=== PATIENT | female | born 1995 | race Caucasian/White ===

== ENCOUNTER 2017-05-19 07:54 | Emergency (ER) | payer OTHER ==
[~2017-05-19] VITALS: Ht 167.6 cm; Wt 74.8 kg
[2017-05-19] MEDS ORDERED: IBUP800T37 PO (07:59)
[2017-05-19] MEDS ORDERED: HYDR-4309 PO (07:59)
--- NOTE | 2017-05-19 08:11 | ER Report ---
History and Physical Time Seen By MD: 08:04 Hx. of Stated Complaint: PT REPORTS R CALF PAIN THAT STARTED SATURDAY HPI/ROS CC: Painful right calf HPI: 22-year-old female 2 para 210 days post vaginal delivery presents to the emergency department with a five-day history of right calf pain that has progressively gotten worse over the last 5 days. Sharp stabbing with standing or flexion of the right ankle. Tender to touch. Calf is warm. Patient denies any shortness of breath, nausea vomiting, chest pain or chest pressure, diaphoresis or palpitations. Patient was in the emergency room on 01/23/2017 for the same complaint. She was 22 weeks at that time. She received a CTA during that visit which was negative. X-ray makes the pain worse. Rest makes it better. She also complains of a right foot being numb. ROS: 12 point review of systems essentially negative other than what's mentioned in history of present illness. NURSES AND OLD MEDICAL RECORDS: Reviewed PMH: Reviewed SURGICAL HX: Reviewed FAMILY HX: Noncontributory SOCIAL HX: She denies smoking alcohol or illicit drugs. She is not sexually active since her delivery. VITAL SIGNS: Reviewed CONSTITUTIONAL: Female in minimal to moderate distress. PHYSICAL EXAM: HEENT: Pupils equal round reactive to light and accommodate, EOMI, tympanic membranes pearly white umbo present with good light reflex. Lips dry mucous membranes moist gums nonbleeding uvula midline and rises equally with phonation, oropharynx noninjected, teeth intact. NECK: Neck supple, thyroid not appreciated, anterior and posterior cervical lymphadenopathy not appreciated. Trachea midline and rises equally with phonation. CARDIAC: S1-S2 regular rate rhythm no murmurs rubs or gallops. LUNGS: Lungs clear bilaterally posteriorly in all park. Good air movement. ABDOMEN: Abdomen soft, nondistended, bowel sounds active in all 4 quadrants, no bruits noted, no CVA tenderness. Right calf is slightly red and warm to touch, tender to touch. Bilateral patellar DTRs are 2+ bilateral Achilles DTRs are 2+. MUSCULOSKELETAL: Strength 5 out of 5 x 4 extremities, no deformities noted. NEUROLOGIC: Patient alert and oriented by 3 Allergies: Coded Allergies: No Known Drug Allergies (Unverified , 05/19/17) Home Meds Reported Medications Ibuprofen (IBUPROFEN) 800 Mg Tablet, 1 TAB PO PRN, TAB 05/19/17 Hydrocodone Bit/Acetaminophen (NORCO 5-325 TABLET) 1 Each Tablet, 1 EACH PO PRN , TAB 05/19/17 Hx Smoking: No Exposure to Second Hand Smoke?: No Hx Substance Use Disorder: No Hx Alcohol Use: No Constitutional Vital Sign - Last 24 Hours 05/19/17 05/19/17 05/19/17 05/19/17 07:55 07:57 07:59 08:00 Temp 97.4 Pulse 94 107 Resp 16 B/P (MAP) 110/75 110/75 (87) 119/76 (90) Pulse Ox 93 92 O2 Delivery Room Air 05/19/17 05/19/17 05/19/17 05/19/17 08:04 08:09 08:19 08:24 Pulse 94 95 94 Resp 26 24 Pulse Ox 93 92 89 92 05/19/17 05/19/17 05/19/17 05/19/17 08:29 08:30 08:34 08:39 Pulse 92 96 Resp 21 15 12 B/P (MAP) 96/66 (76) Pulse Ox 93 93 92 Medical Decision Making Data Points Result Diagram: 05/19/17 0823 05/19/17 0823 Laboratory Hematology Test 05/19/17 08:23 Red Blood Count 5.54 M/uL (4.17-5.56) Mean Corpuscular Volume 81.8 fL (80.0-96.0) Mean Corpuscular Hemoglobin 27.1 pg (26.0-33.0) Mean Corpuscular Hemoglobin Concent 33.1 g/dL (32.0-36.0) Red Cell Distribution Width 14.1 % (11.5-14.5) Mean Platelet Volume 6.6 fL (7.2-11.1) Neutrophils (%) (Auto) 62.4 % (39.4-72.5) Lymphocytes (%) (Auto) 29.7 % (17.6-49.6) Monocytes (%) (Auto) 5.3 % (4.1-12.4) Eosinophils (%) (Auto) 1.1 % (0.4-6.7) Basophils (%) (Auto) 1.5 % (0.3-1.4) Nucleated RBC Relative Count (auto) 0.1 /100WBC Neutrophils # (Auto) 5.8 K/uL (2.0-7.4) Lymphocytes # (Auto) 2.8 K/uL (1.3-3.6) Monocytes # (Auto) 0.5 K/uL (0.3-1.0) Eosinophils # (Auto) 0.1 K/uL (0.0-0.5) Basophils # (Auto) 0.1 K/uL (0.0-0.1) Nucleated RBC Absolute Count (auto) 0.01 K/uL Prothrombin Time 13.1 seconds (12.0-14.4) Prothromb Time International Ratio 0.99 Activated Partial Thromboplast Time 30 seconds (23-35) D-Dimer Quantitative (PE/DVT) 2.13 ug/ml (0-0.50) Sodium Level 140 mmol/L (137-145) Potassium Level 3.9 mmol/L (3.5-5.0) Chloride Level 107 mmol/L (98-107) Carbon Dioxide Level 23 mmol/L (22-31) Blood Urea Nitrogen 14 mg/dl (7-18) Creatinine 0.80 mg/dl (0.52-1.04) Glomerular Filtration Rate Calc > 60.0 Random Glucose 83 mg/dl (75-110) Calcium Level 9.4 mg/dl (8.4-10.2) Total Bilirubin 0.6 mg/dl (0.2-1.3) Aspartate Amino Transf (AST/SGOT) 23 U/L (0-35) Alanine Aminotransferase (ALT/SGPT) 24 U/L (0-56) Alkaline Phosphatase 59 U/L (0-126) Troponin I < 0.012 ng/ml Total Protein 7.8 gm/dl (6.3-8.2) Albumin 3.8 g/dl (3.5-5.0) Chemistry Test 05/19/17 08:23 White Blood Count 9.3 k/uL (4.5-11.0) Red Blood Count 5.54 M/uL (4.17-5.56) Hemoglobin 15.0 g/dL (12.0-16.0) Hematocrit 45.3 % (34.0-47.0) Mean Corpuscular Volume 81.8 fL (80.0-96.0) Mean Corpuscular Hemoglobin 27.1 pg (26.0-33.0) Mean Corpuscular Hemoglobin Concent 33.1 g/dL (32.0-36.0) Red Cell Distribution Width 14.1 % (11.5-14.5) Platelet Count 282 K/uL (150-450) Mean Platelet Volume 6.6 fL (7.2-11.1) Neutrophils (%) (Auto) 62.4 % (39.4-72.5) Lymphocytes (%) (Auto) 29.7 % (17.6-49.6) Monocytes (%) (Auto) 5.3 % (4.1-12.4) Eosinophils (%) (Auto) 1.1 % (0.4-6.7) Basophils (%) (Auto) 1.5 % (0.3-1.4) Nucleated RBC Relative Count (auto) 0.1 /100WBC Neutrophils # (Auto) 5.8 K/uL (2.0-7.4) Lymphocytes # (Auto) 2.8 K/uL (1.3-3.6) Monocytes # (Auto) 0.5 K/uL (0.3-1.0) Eosinophils # (Auto) 0.1 K/uL (0.0-0.5) Basophils # (Auto) 0.1 K/uL (0.0-0.1) Nucleated RBC Absolute Count (auto) 0.01 K/uL Prothrombin Time 13.1 seconds (12.0-14.4) Prothromb Time International Ratio 0.99 Activated Partial Thromboplast Time 30 seconds (23-35) D-Dimer Quantitative (PE/DVT) 2.13 ug/ml (0-0.50) Glomerular Filtration Rate Calc > 60.0 Calcium Level 9.4 mg/dl (8.4-10.2) Total Bilirubin 0.6 mg/dl (0.2-1.3) Aspartate Amino Transf (AST/SGOT) 23 U/L (0-35) Alanine Aminotransferase (ALT/SGPT) 24 U/L (0-56) Alkaline Phosphatase 59 U/L (0-126) Troponin I < 0.012 ng/ml Total Protein 7.8 gm/dl (6.3-8.2) Albumin 3.8 g/dl (3.5-5.0) Coagulation Test 05/19/17 08:23 Prothrombin Time 13.1 seconds Prothromb Time International Ratio 0.99 Activated Partial Thromboplast Time 30 seconds D-Dimer Quantitative (PE/DVT) 2.13 ug/ml EKG/Imaging EKG Interpretation Normal sinus rhythm, possible left atrial enlargement, ventricular rate 85 bpm, IA interval 148 ms, QRS duration 66 ms, QT 346 ms, QTC 411 seconds Imaging Ultrasound right lower extremity: Ultrasound showed no DVT. ED Course/Re-evaluation ED Course Patient received Toradol for her pain. CT was negative. Labs except for d-dimer within normal limits. D-dimer is elevated the patient just delivered her baby approximately 10 days ago. Patient will be discharged home ibuprofen for pain control. Follow-up with PCP and/or ED appearing bases. Patient with a plan and in agreement. Re-evaluation Medical decision-making includes but not excluded PT, muscle strain. Decision to Disposition Date: May 19, 2017 Decision to Disposition Time: 09:21 Depart Departure Latest Vital Signs Vital Signs Date Time Temp Pulse Resp B/P (MAP) Pulse Ox O2 Delivery O2 Flow Rate FiO2 05/19/17 08:39 96 12 92 05/19/17 08:30 96/66 (76) 05/19/17 07:55 97.4 Room Air Impression: Primary Impression: Leg pain, left Condition: Condition Unchanged Disposition: HOME OR SELF-CARE Patient Instructions: Leg Pain (ED) Additional Instructions: Take ibuprofen for pain. Your ultrasound was negative for DVT, blood clot in the leg. Follow-up with regular doctor or return to the emergency department if they have any further concerns or sudden increase in chest pain or chest pressure with shortness of breath. I and the staff wanted to thank you for allowing us to take care of your needs today in the emergency department at [facility]. We have tried to answer all of your questions and concerns. Please feel free to return to the emergency department for any further concerns or unanswered questions. KULWINDER GUAJARDO MD May 19, 2017 08:11
[2017-05-19] MEDS ORDERED: KETOROLAC 30 MG/ML VIAL IVP ONE (08:15)
--- NOTE | 2017-05-19 08:26 | EKG ---
FACILITY: [facility] [place]IENT NAME: JIM SIMS : [id number] MR: [id number] V: [id number] EXAM DATE: ORDERING PHYSICIAN: KULWINDER GUAJARDO TECHNOLOGIST: Dixon Tatum Reason : Blood Pressure : / mmHG Vent. Rate : 085 BPM Atrial Rate : 085 BPM P-R Int : 148 ms QRS Dur : 066 ms QT Int : 346 ms P-R-T Axes : 056 062 038 degrees QTc Int : 411 ms Sinus rhythm Probable biatrial enlargement Nonspecific ST findings inferolateral leads Borderline ECG Confirmed by EMY GAONA ([id number] on 05/20/2017 5:54:18 AM Referred By: Confirmed By:EMY GAONA
[2017-05-19 08:37] LABS: PLATELET COUNT, AUTOMATED 282 K/uL (150-450)
[2017-05-19 08:47] LABS: INR 0.99
[2017-05-19 09:26] VITALS: BP 97/62
--- NOTE | 2017-05-19 09:29 | RADIOLOGY IMAGING REPORT ---
FACILITY: [facility] PATIENT NAME: Addis Kendrick : 1995 MR: [id number] V: [id number] EXAM DATE: ORDERING PHYSICIAN: KULWINDER GUAJARDO TECHNOLOGIST: Location: [facility] - [place] Patient: Addis Kendrick : 1995 Visit/Account:[id number] Date of Sevice: 05/19/2017 VENOUS DOPP LOW RIGHT EXTREMIT HISTORY: 10 days with a painful right calf Concern for deep venous thrombus. COMPARISON: None. FINDINGS: Grayscale, duplex and color Doppler interrogation of the right lower extremity deep veins from common femoral vein to proximal calf was completed. The left common femoral vein was evaluated using simila r technique. Common femoral vein - Negative. Femoral vein - Negative. Deep femoral vein - Negative. Popliteal vein - Negative. Visualized deep calf veins - Negative. Popliteal fossa: Negative. Contralateral (left) common femoral vein: Negative. IMPRESSION: No evidence of acute deep venous thrombosis in the visualized veins of the right lower extremity. Report Dictated By: Jose Antonio Dillon at 05/19/2017 9:25 AM Report E-Signed By: Jose Antonio Dillon at 05/19/2017 9:26 AM WSN:[id number]
== END 2017-05-19 09:28 | disposition home or self-care (01) ==
LOC: ER 08:15
DX: M79.661 Pain in right lower leg (principal)
CPT/HCPCS: 84484; 85025; 85379; 85610; 85730; 93005; 93971; 96374; 99284; J1885; 82040; 82247; 82310; 82374; 82435; 82565; 82947; 84075; 84132; 84155; 84295; 84450; 84460; 84520

== ENCOUNTER 2017-06-22 21:49 | Emergency (ER) | payer OTHER ==
[~2017-06-22] VITALS: Ht 167.6 cm; Wt 77.1 kg
[~2017-06-22 21:49] MED LIST: HYDR-4309 PO; IBUP800T37 PO
--- NOTE | 2017-06-22 22:05 | ER Report ---
History and Physical Time Seen By MD: 21:59 Hx. of Stated Complaint: PATIENT HAS A SORE THROAT; CHILLS; BODY ACHES FOR THE PAST TWO DAYS HPI/ROS CHIEF COMPLAINT: sore throat, hot and cold chills HISTORY OF PRESENT ILLNESS: This is a 22 year old female. She has had a few days of sore throat, mild cough, and body aches. Today with subjective fevers and cold chills as well. She is not sure about sick contacts but states her child is in daycare and she is a college student, so suspects contacts that she is unaware of. No chest pain. No abdominal pain. No nausea or vomiting. No diarrhea or bowel problems. No dysuria or problems with urination. No rashes. Allergies: Coded Allergies: No Known Drug Allergies (Unverified , 06/22/17) Home Meds Active Scripts Fluconazole (DIFLUCAN) 150 Mg Tablet, 150 MG PO QDAY for 1 Day, #1 TAB 1 Refill Prov:JOSE ALFREDO CASTILLO MD 06/22/17 Amoxicillin (AMOXICILLIN) 500 Mg Capsule, 1 CAP PO Q8H, #21 CAPSULE 0 Refills Prov:JOSE ALFREDO CASTILLO MD 06/22/17 Reported Medications Ibuprofen (IBUPROFEN) 800 Mg Tablet, 1 TAB PO PRN, TAB 05/19/17 Hydrocodone Bit/Acetaminophen (NORCO 5-325 TABLET) 1 Each Tablet, 1 EACH PO PRN , TAB 05/19/17 Reviewed Nurses Notes: Yes Hx Smoking: No Exposure to Second Hand Smoke?: No Hx Substance Use Disorder: No Hx Alcohol Use: No Constitutional Vital Sign - Last 24 Hours 06/22/17 06/22/17 06/22/17 06/22/17 21:52 21:54 21:54 21:59 Temp 98.8 Pulse 89 100 98 Resp 18 B/P (MAP) 110/81 (91) 110/81 Pulse Ox 94 93 93 O2 Delivery Room Air 06/22/17 06/22/17 06/22/17 06/22/17 22:03 22:04 22:09 22:14 Pulse 97 92 95 B/P (MAP) 108/70 (83) Pulse Ox 91 92 92 06/22/17 06/22/17 06/22/17 06/22/17 22:19 22:24 22:29 22:30 Pulse 90 89 90 B/P (MAP) 97/63 (74) Pulse Ox 91 92 92 06/22/17 06/22/17 06/22/17 06/22/17 22:34 22:39 22:44 22:49 Pulse 91 91 90 90 Pulse Ox 91 91 90 91 06/22/17 06/22/17 06/22/17 06/22/17 22:54 22:59 23:00 23:05 Pulse 91 90 88 Resp 16 B/P (MAP) 91/66 (74) 105/65 (78) Pulse Ox 92 92 93 O2 Delivery Room Air Physical Exam General Appearance: Alert, no acute distress. Eyes: Pupils equal and round no injection. ENT: Normal oral mucosa. Moist mucous membranes. Posterior oropharynx is erythematous with some exudates. Tympanic membranes are normal. Neck: Neck is supple and she has some tender submandibular lymphadenopathy. Respiratory: Chest is non tender, lungs are clear to auscultation. Cardiac: regular rate and rhythm Gastrointestinal: Abdomen is soft and non tender, bowel sounds normal. Skin: No rashes or lesions. DIFFERENTIAL DIAGNOSIS: After history and physical exam differential diagnosis was considered for sore throat, aches, fevers. With the mild cough favor viral upper or influenza, but could be strep. Medical Decision Making Data Points Laboratory Hematology Test 06/22/17 22:03 Influenza Virus Type A (PCR) Negative (NEGATIVE) Influenza Virus Type B (PCR) Negative (NEGATIVE) Group A Streptococcus Screen Positive (NEGATIVE) Chemistry Test 06/22/17 22:03 Influenza Virus Type A (PCR) Negative (NEGATIVE) Influenza Virus Type B (PCR) Negative (NEGATIVE) Group A Streptococcus Screen Positive (NEGATIVE) ED Course/Re-evaluation ED Course Strep positive. Influenza negative. Started on amoxicillin. Gave prescription for Fluconazole as well. Decision to Disposition Date: Jun 22, 2017 Decision to Disposition Time: 22:58 Depart Departure Latest Vital Signs Vital Signs Date Time Temp Pulse Resp B/P (MAP) Pulse Ox O2 Delivery O2 Flow Rate FiO2 06/22/17 23:05 88 16 105/65 (78) 93 Room Air 06/22/17 21:54 98.8 Impression: Primary Impression: Strep pharyngitis Condition: Improved Disposition: HOME OR SELF-CARE New Scripts Fluconazole (DIFLUCAN) 150 Mg Tablet 150 MG PO QDAY for 1 Day, #1 TAB 1 Refill Prov: JOSE ALFREDO CASTILLO MD 06/22/17 Amoxicillin (AMOXICILLIN) 500 Mg Capsule 1 CAP PO Q8H, #21 CAPSULE 0 Refills Prov: JOSE ALFREDO CASTILLO MD 06/22/17 Patient Instructions: Strep Throat (ED) Additional Instructions: Take the antibiotic Amoxicillin 500mg three times a day for 7 days. Tylenol or Ibuprofen as needed for pain or fever. Good handwashing to avoid spreading to others. Diflucan 150mg tablet once. One other refill available if needed for recurrent symptoms of yeast infection once antibiotics complete. JOSEA LFREDO CASTILLO MD Jun 22, 2017 22:05
[2017-06-22] MEDS ORDERED: FLUC150T40 PO (23:00)
[2017-06-22] MEDS ORDERED: AMOX-362 PO (23:00)
[2017-06-22] MEDS ORDERED: AMOXICILLIN 500 MG CAP PO ONE (23:00)
[2017-06-22 23:05] VITALS: BP 105/65
== END 2017-06-22 23:13 | disposition home or self-care (01) ==
LOC: ER 22:24
DX: J02.0 Streptococcal pharyngitis (principal)
CPT/HCPCS: 87081; 87502; 87880; 99284

== ENCOUNTER 2017-08-18 19:52 | Emergency (ER) | payer OTHER, MEDICAID ==
[~2017-08-18 19:52] MED LIST changes: +AMOX-362 PO; +FLUC150T40 PO
[2017-08-18] MEDS ORDERED: BUPR-472 PO (20:08)
--- NOTE | 2017-08-18 20:18 | ER Report ---
History and Physical Time Seen By MD: 19:55 Hx. of Stated Complaint: PTS HAD A SORE THROAT FOR 4 DAYS, INITAL STREP TEST WAS NEGATIVE. PT FEELS LIKE THROAT IS MORE SWOLLEN, AND IS GETTING WORSE. HPI/ROS CHIEF COMPLAINT: sore throat HISTORY OF PRESENT ILLNESS: This is a 22 year old female. She has been sick for about 4 days now. She has a sore throat, which has worsened. Feels like swelling is present. Pain makes it hard to eat or swallow. Over the counter medications not helping much. Took a [place] today which helped a little. She did see urgent care and had a negative strep screen. Mild cough. Some trouble breathing because of the tight feeling. Muscle aches and pains. Allergies: Coded Allergies: No Known Drug Allergies (Unverified , 06/22/17) Home Meds Active Scripts Prednisone (PREDNISONE) 20 Mg Tablet, 40 MG PO QDAY for 4 Days, #8 TAB 0 Refills Prov:JOSE ALFREDO CASTILLO MD 08/18/17 Hydrocodone Bit/Acetaminophen (HYDROCODON-ACETAMINOPHEN 5-325) 1 Each Tablet, 1 EACH PO Q4H Y for PAIN, #10 TAB 0 Refills Prov:JOSE ALFREDO CASTILLO MD 08/18/17 Reported Medications Bupropion Hcl (WELLBUTRIN XL) 150 Mg Tab.er.24h, 150 MG PO QDAY, TAB 08/18/17 Ibuprofen (IBUPROFEN) 800 Mg Tablet, 1 TAB PO PRN, TAB 05/19/17 Hydrocodone Bit/Acetaminophen (NORCO 5-325 TABLET) 1 Each Tablet, 1 EACH PO PRN , TAB 05/19/17 Discontinued Scripts Fluconazole (DIFLUCAN) 150 Mg Tablet, 150 MG PO QDAY for 1 Day, #1 TAB 1 Refill Prov:JOSE ALFREDO CASTILLO MD 06/22/17 Amoxicillin (AMOXICILLIN) 500 Mg Capsule, 1 CAP PO Q8H, #21 CAPSULE 0 Refills Prov:JOSE ALFREDO CASTILLO MD 06/22/17 Reviewed Nurses Notes: Yes Hx Smoking: No Exposure to Second Hand Smoke?: No Hx Substance Use Disorder: No Hx Alcohol Use: No Constitutional Vital Sign - Last 24 Hours 08/18/17 08/18/17 08/18/17 08/18/17 19:54 19:56 20:07 20:08 Temp 97.7 Pulse 104 104 Resp 18 B/P (MAP) 123/75 (91) 123/75 119/81 (94) Pulse Ox 94 93 O2 Delivery Room Air Room Air 08/18/17 08/18/17 08/18/17 08/18/17 20:22 20:30 20:37 20:52 Pulse 95 95 101 B/P (MAP) 99/63 (75) Pulse Ox 93 95 93 O2 Delivery Room Air Room Air Room Air 08/18/17 08/18/17 08/18/17 08/18/17 21:00 21:07 21:12 21:15 Pulse 103 92 88 Resp 16 B/P (MAP) 107/78 (88) 107/68 (81) Pulse Ox 94 93 95 O2 Delivery Room Air Room Air Physical Exam General Appearance: The patient is alert, has no immediate need for airway protection and no current signs of toxicity. Eyes: Pupils equal and round no injection. ENT: Normal oral mucosa. Moist mucous membranes. Posterior oropharynx with erythema, no exudates or hypertrophy. Tympanic membranes with bilateral effusion , but no bulging or erythema. Neck: Neck is supple and non tender. Has anterior cervical lymphadenopathy. Respiratory: Chest is non tender, lungs are clear to auscultation. Cardiac: regular rate and rhythm Skin: No rashes. DIFFERENTIAL DIAGNOSIS: After history and physical exam differential diagnosis was considered for sore throat, will check Wood[place], Strep and Influenza. Medical Decision Making Data Points Laboratory Hematology Test 08/18/17 20:07 Monoscreen Negative (NEGATIVE) Influenza Virus Type A (PCR) Negative (NEGATIVE) Influenza Virus Type B (PCR) Negative (NEGATIVE) Group A Streptococcus Screen Negative (NEGATIVE) Chemistry Test 08/18/17 20:07 Monoscreen Negative (NEGATIVE) Influenza Virus Type A (PCR) Negative (NEGATIVE) Influenza Virus Type B (PCR) Negative (NEGATIVE) Group A Streptococcus Screen Negative (NEGATIVE) ED Course/Re-evaluation ED Course Influenza, Strep and Woodson negative. Discussed results with the patient. Prednisone given to help with swelling associated with the pharyngitis. Lortab for pain. Magic mouthwash for pain. Decision to Disposition Date: Aug 18, 2017 Decision to Disposition Time: 21:03 Depart Departure Latest Vital Signs Vital Signs Date Time Temp Pulse Resp B/P (MAP) Pulse Ox O2 Delivery O2 Flow Rate FiO2 08/18/17 21:15 88 16 107/68 (81) 95 Room Air 4/8/18 19:56 97.7 Impression: Primary Impression: Viral pharyngitis Condition: Condition Unchanged Disposition: HOME OR SELF-CARE New Scripts Prednisone (PREDNISONE) 20 Mg Tablet 40 MG PO QDAY for 4 Days, #8 TAB 0 Refills Prov: JOSE ALFREDO CASTILLO MD 08/18/17 Hydrocodone Bit/Acetaminophen (HYDROCODON-ACETAMINOPHEN 5-325) 1 Each Tablet 1 EACH PO Q4H Y for PAIN, #10 TAB 0 Refills Prov: JOSE ALFREDO CASTILLO MD 08/18/17 Patient Instructions: Pharyngitis (ED) Additional Instructions: Magic mouthwash (combination of lidocaine, Benadryl and Maalox): take 1 teaspoon by mouth, swish, gargle and swallow, once every 4-6 hours as needed for sore throat pain. Prednisone 20mg tablets, take 2 tablets once a day for 4 more days. Take Lortab 5/325, one every 4 hours as needed for pain. Rest and increase fluid intake. JOSE ALFREDO CASTILLO MD Aug 18, 2017 20:18
[2017-08-18] MEDS ORDERED: MAG HYD/AL HYD/SIMETH 30ML UDC PO ONE (21:05)
[2017-08-18] MEDS ORDERED: LOR5/325 PO (21:05)
[2017-08-18] MEDS ORDERED: predniSONE 20 MG TAB PO ONE (21:05)
[2017-08-18] MEDS ORDERED: LIDOCAINE 2% VISC SLN 15ML UDC PO ONE (21:05)
[2017-08-18] MEDS ORDERED: PRED20TA6 PO (21:05)
[2017-08-18] MEDS ORDERED: ACET/HYDROC 5/325MG TH ER ONLY 2 TAB/BOTTLE PO ONE (21:05)
[2017-08-18 21:15] VITALS: BP 107/68
== END 2017-08-18 21:19 | disposition home or self-care (01) ==
LOC: ER 19:56
DX: J02.9 Acute pharyngitis, unspecified (principal)
CPT/HCPCS: 36415; 86308; 87081; 87502; 87880; 99282; 99283; J7512; Q0163

== ENCOUNTER → 2018-06-06 | Outpatient (CLI) | payer OTHER, MEDICAID ==
[~2018-06-06] MED LIST changes: +BUPR-472 PO; +GADOBENATE 529MG/1ML 15ML VIAL IVP ONE; -HYDR-4309 PO; +HYDR-653 PO; +LOR5/325 PO; +PRED20TA6 PO
--- NOTE | 2018-06-06 11:34 | RADIOLOGY IMAGING REPORT ---
FACILITY: [facility] - [place] PATIENT NAME: Addis Kendrick : 1995 MR: [id number] V: [id number] EXAM DATE: ORDERING PHYSICIAN: NAYELI SOLANO TECHNOLOGIST: Location: [facility] - [place] Patient: Addis Kendrick : 1995 Visit/Account:[id number] Date of Sevice: 06/06/2018 Study: MRI of the brain without and with gadolinium contrast. Indication: Migraine with aura Comparison study: None Contrast used: 15 mL MultiHance gadolinium contrast Technique: Multiplanar MRI sequences were obtained through the brain before and after the administrat ion of gadolinium contrast. The examination demonstrates no evidence of acute intracranial hemorrhage. There is no evidence of ex tra-axial collection or hydrocephalus. There is no abnormal signal identified within the brain parenchyma. There is no evidence of Chiari I malformation. The pituitary gland is unremarkable in appearance. There is no evidence of abnormality of the pineal gland. A diffusion-weighted sequence was performed and demonstrates no evidence of active ischemia. There is no evidence of active infarct The orbits are unremarkable. The paranasal sinuses are unremarkable Following the administration of gadolinium contrast, there is no abnormal intracranial contrast enhan cement. IMPRESSION:Unremarkable MRI of the brain without and with intravenous contrast. Report Dictated By: Sea Dacosta at 06/06/2018 11:27 AM Report E-Signed By: Sea Dacosta at 06/06/2018 11:30 AM WSN:[id number]
== END ==
LOC: MRI 02:16
PROVIDERS: ATTEND Physician Assistant
DX: G43.109 Migraine with aura, not intractable, without status migrainosus (principal)
CPT/HCPCS: 70553; A9577